=== PATIENT | male | born 1985 | race Caucasian/White ===

== ENCOUNTER → 2017-05-16 | Outpatient (CLI) | payer OTHER | LOC: BHSO 15:41 | DX: F31.81 Bipolar II disorder (principal) ==

== ENCOUNTER → 2017-11-13 | Outpatient (CLI) | payer OTHER | LOC: BHSO 11:35 | DX: F31.81 Bipolar II disorder (principal) ==

== ENCOUNTER → 2018-05-09 | Outpatient (CLI) | payer BC | LOC: BHSO 09:01 | DX: F31.31 Bipolar disorder, current episode depressed, mild (principal) | CPT/HCPCS: G0463 ==

== ENCOUNTER → 2018-12-01 | Outpatient (CLI) | payer BC | LOC: BHSO 08:03 | DX: F31.81 Bipolar II disorder (principal) | CPT/HCPCS: G0463 ==

== ENCOUNTER → 2019-05-22 | Outpatient (CLI) | payer BC | LOC: BHSO 08:56 | DX: F31.81 Bipolar II disorder (principal) ==

== ENCOUNTER → 2019-12-04 | Outpatient (CLI) | payer BC | LOC: BHSO 09:21 | DX: F31.81 Bipolar II disorder (principal) | CPT/HCPCS: G0463 ==